=== PATIENT | male | born 1995 | race Caucasian/White ===

== ENCOUNTER 2018-05-15 02:10 | Emergency (ER) | payer SELFPAY | END 2018-05-15 03:16 | disposition home or self-care (01) | LOC: FTE 02:10 | DX: S16.1XXA Strain of muscle, fascia and tendon at neck level, initial encounter (principal); S39.012A Strain of muscle, fascia and tendon of lower back, initial encounter; V89.2XXA Person injured in unspecified motor-vehicle accident, traffic, initial encounter | CPT/HCPCS: 99283 ==